=== PATIENT | female | born 2000 | race Caucasian/White ===

== ENCOUNTER 2023-12-10 12:00 | Emergency (ER) | payer BC, OTHER ==
[2023-12-10 13:12] LABS: HCT 41.7 % (34.0-46.0); HGB 13.7 gm/dL (11.4-16.0); MCH 29.2 pg (25.0-35.0); MCHC 32.9 g/dL (31.0-37.0); MCV 88.9 fL (80.0-100.0); Mean Platelet Volume 7.7; Platelet Count 365 k/uL (150-450)
[2023-12-10 13:22] LABS: ALT 25 U/L (4-34); AST 25 U/L (14-36); African American GFR (CKD) >90 (>60 ml/min/1.73 sqM); Albumin 4.1 g/dL (3.5-5.0); Alkaline Phosphatase 76 U/L (38-126); Anion Gap 8 mmol/L; Blood Urea Nitrogen 8 mg/dL (7-17); Calcium 8.9 mg/dL (8.4-10.2); Carbon Dioxide 22 mmol/L (22-30); Chloride 108 mmol/L (98-107); Glucose 91 mg/dL (74-99); Non-African American GFR(CKD) >90 (>60 ml/min/1.73 sqM); Potassium 4.4 mmol/L (3.5-5.1); Sodium 138 mmol/L (137-145); Total Bilirubin 0.4 mg/dL (0.2-1.3); Total Protein 6.8 g/dL (6.3-8.2)
[2023-12-10 13:25] LABS: HCG,Qualitative Serum Not Detected
[2023-12-10 14:16] LABS: Eosinophils # (M) 0.14 k/uL (0-0.7); Lymphocytes # (M) 3.08 k/uL (1.0-4.8); Monocytes # (M) 0.56 k/uL (0-1.0); Neutrophils # (M) 10.22 k/uL (1.3-7.7); Neutrophils % (M) 73 %; Nucleated Red Blood Cells 0 /100 WBC (0-0); Total Cells Counted 100
[2023-12-10] MEDS: MORPHINE SULFATE 4 MG/ML SYRINGE IVP PRN (14:45)
--- NOTE | 2023-12-10 15:15 | CT ---
EXAMINATION TYPE: CT lower extremity LT w con DATE OF EXAM: 12/10/2023 COMPARISON: None HISTORY: right knee dislocation CT DLP: 204.7 mGycm Automated exposure control for dose reduction was used. Contrast: None Technique: Axial images 1 mm thick sections. Reconstructed images in the coronal and sagittal plane. 3-D reconstructed images are reviewed on the computer. FINDINGS: There is a subtle fracture of the anterior medial femoral condyle. Example image series 201 image 44 this is better appreciated on the coronal reconstructed images, series 202 image 26. This extends fro m the distal metaphysis towards the medial portion of the femoral condyle. Fracture appears nondispla nicanor. There is a fracture fragment posterior lateral joint space. This may be from fibular head. Additional fracture of the proximal fibula is present. Soft tissue injury is within the lateral knee. IMPRESSION: 1. THERE IS A COMMINUTED FRACTURE OF THE FIBULAR HEAD WITH DIASTASES AND RETRACTION OF THE SUPERIOR F RACTURE FRAGMENT. 2. SUBTLE NONDISPLACED FRACTURE OF THE ANTERIOR MEDIAL FEMORAL CONDYLE IS PRESENT.
--- NOTE | 2023-12-10 16:05 | ED ---
Lower Extremity Injury HPI - General Chief Complaint: Extremity Injury, Lower Stated Complaint: right knee injury Time Seen by Provider: 12/10/23 12:10 Source: patient, EMS Mode of arrival: EMS Limitations: no limitations - History of Present Illness Initial Comments: 23-year-old female presents emergency department with possible knee dislocation. States that she was playing tennis when she planted her leg and went to jump off. She states she did something snap in her leg. When she was in the air she felt like she had complete dislocation of her knee and then patient fell to the ground. Patient admits that she has had previous patellar dislocation and this felt different. States that her leg relocated almost immediately. EMS that brought her in and gave her fentanyl for pain control. States her pain is at a 4. Denies any numbness or tingling in her foot. Denies any other injuries. Patient did not strike her head. No other alleviating, precipitating or modifying factors - Related Data Home Medications Medication Instructions Recorded Confirmed Control Unknown 1 tab PO HS 04/11/17 Previous Rx's Medication Instructions Recorded Ondansetron Odt [Zofran Odt] 4 mg PO Q8HR PRN #10 tab 04/11/17 HYDROcodone/APAP 5-325MG [[place] 1 tab PO Q4HR PRN #18 tab 12/10/23 5-325] Ibuprofen [Motrin] 600 mg PO Q8HR PRN #30 tab 12/10/23 Allergies Allergy/AdvReac Type Severity Reaction Status Date / Time No Known Allergies Allergy Verified 12/10/23 12:20 Review of Systems ROS Statement: Those systems with pertinent positive or pertinent negative responses have been documented in the HPI. ROS Other: All systems not noted in ROS Statement are negative. Past Medical History Past Medical History: No Reported History Additional Past Medical History / Comment(s): sports induced asthma as kid History of Any Multi-Drug Resistant Organisms: None Reported Additional Past Surgical History / Comment(s): ovarian cyst surgery Past Psychological History: No Psychological Hx Reported Smoking Status: Vaper Past Alcohol Use History: Occasional Past Drug Use History: None Reported General Exam Limitations: no limitations General appearance: alert, in no apparent distress Head exam: Present: atraumatic, normocephalic, normal inspection Eye exam: Present: normal appearance, PERRL, EOMI. Absent: scleral icterus, conjunctival injection, periorbital swelling ENT exam: Present: normal exam, mucous membranes moist Neck exam: Present: normal inspection. Absent: tenderness, meningismus, lymphadenopathy Respiratory exam: Present: normal lung sounds bilaterally. Absent: respiratory distress, wheezes, rales, rhonchi, stridor Cardiovascular Exam: Present: regular rate, normal rhythm, normal heart sounds. Absent: systolic murmur, diastolic murmur, rubs, gallop, clicks GI/Abdominal exam: Present: soft, normal bowel sounds. Absent: distended, tenderness, guarding, rebound, rigid Extremities exam: Present: tenderness (With range of motion of the right knee. Appears to have laxity. Joint effusion present 2+ DP and PT pulses. Compartments are soft), joint swelling. Absent: pedal edema, calf tenderness Back exam: Present: normal inspection Neurological exam: Present: alert, oriented X3, CN II-XII intact Psychiatric exam: Present: normal affect, normal mood Skin exam: Present: warm, dry, intact, normal color. Absent: rash Course Vital Signs 12/10/23 12/10/23 12/10/23 12:06 14:43 17:01 Temperature 98.3 F 98.1 F Pulse Rate 78 98 107 H Respiratory 16 22 20 Rate Blood Pressure 136/89 163/84 141/94 O2 Sat by Pulse 99 98 98 Oximetry Medical Decision Making - Medical Decision Making Was pt. sent in by a medical professional or institution ([facility], [facility], urgent care, hospital, or fpc...) When possible be specific @ -No Did you speak to anyone other than the patient for history (EMS, parent, family, police, friend...)? What history was obtained from this source @ -Spoke with EMS for the history Did you review nursing and triage notes (agree or disagree)? Why? @ -I reviewed and agree with nursing and triage notes Were old charts reviewed (outside hosp., previous admission, EMS record, old EKG, old radiological studies, urgent care reports/EKG's, fpc records)? Report findings @ -No old charts were reviewed Differential Diagnosis (chest pain, altered mental status, abdominal pain women, abdominal pain men, vaginal bleeding, weakness, fever, dyspnea, syncope, headache, dizziness, GI bleed, back pain, seizure, CVA, palpatations, mental health, musculoskeletal)? @ -Differential Musculoskeletal Muscular strain, contusion, ligament sprain, fracture, arthritis, septic arthritis, bursitis, cellulitis, muscle spasm, nerve compression, DVT, arterial occlusion, herpes zoster, electrolyte abnormality, tumor.... This is not meant to be in all inclusive list EKG interpreted by me (3pts min.). @ -Not done X-rays interpreted by me (1pt min.). @ -None done CT interpreted by me (1pt min.). @ -Yes and demonstrates proximal fibular fracture and medial femoral condyle fracture U/S interpreted by me (1pt. min.). @ -None done What testing was considered but not performed or refused? (CT, X-rays, U/S, labs)? Why? @ -None What meds were considered but not given or refused? Why? @ -None Did you discuss the management of the patient with other professionals (professionals i.e. , PA, [facility], lab, RT, psych nurse, social services technician, chicken stuffer, teacher, professional security officer, rehabilitation caseworker)? Give summary @ -Spoke with Dr. Jackson who states the patient be discharged home in a knee immobilizer Was smoking cessation discussed for >3mins.? @ -No Was critical care preformed (if so, how long)? @ -No Were there social determinants of health that impacted care today? How? (Homelessness, low income, unemployed, alcoholism, drug addiction, transportation, low edu. Level, literacy, decrease access to med. care, usp, rehab)? @ -No Was there de-escalation of care discussed even if they declined (Discuss DNR or withdrawal of care, Hospice)? DNR status @ -No What co-morbidities impacted this encounter? (DM, HTN, Smoking, COPD, CAD, Cancer, CVA, ARF, Chemo, Hep., AIDS, mental health diagnosis, sleep apnea, morbid obesity)? @ -None Was patient admitted / discharged? Hospital course, mention meds given and route, prescriptions, significant lab abnormalities, going to OR and other pertinent info. @ -Upon arrival patient seen and evaluated in room 28. Thorough history and physical exam was performed. Patient has no knee dislocation at this time. As there is concern that the patient did dislocate the whole knee I did perform a CT of her lower extremity. I ordered pain medications which the patient stated she did not need at this time. CT was performed. Called and spoke with Dr. Trejo in regards to the results. He states that the patient may be safely discharged home in a knee immobilizer with outpatient MRI follow-up. Patient will take Motrin alternating with [place] for pain control. Rest, ice and elevate the extremity. Follow-up should she have any new or worsening symptoms to include signs of compartment syndrome which the patient is instructed on. She will follow-up with orthopedic office. Patient agreeable this plan was discharged in stable condition with a set of crutches Undiagnosed new problem with uncertain prognosis? @ -No Drug Therapy requiring intensive monitoring for toxicity (Heparin, Nitro, Insulin, Cardizem)? @ -No Were any procedures done? @ -No Diagnosis/symptom? @ -Acute fall, acute proximal fibular fracture, acute medial condyle fracture, suspected knee dislocation Acute, or Chronic, or Acute on Chronic? @ -Acute Uncomplicated (without systemic symptoms) or Complicated (systemic symptoms)? @ -Complicated Side effects of treatment? @ -No Exacerbation, Progression, or Severe Exacerbation? @ -No Poses a threat to life or bodily function? How? (Chest pain, [place], [place], pneumonia, PE, COPD, DKA, ARF, appy, cholecystitis, CVA, Diverticulitis, Homicidal, Suicid al, threat to staff... and all critical care pts) @ -No - Lab Data Result diagrams: 12/10/23 12:56 12/10/23 12:56 Lab Results 12/10/23 12/10/23 Range/Units 12:56 12:56 WBC 14.0 H (3.8-10.6) k/uL RBC 4.70 (3.80-5.40) m/uL Hgb 13.7 (11.4-16.0) gm/dL Hct 41.7 (34.0-46.0) % MCV 88.9 (80.0-100.0) fL MCH 29.2 (25.0-35.0) pg MCHC 32.9 (31.0-37.0) g/dL RDW 13.0 (11.5-15.5) % Plt Count 365 (150-450) k/uL MPV 7.7 Neutrophils % (Manual) 73 % Lymphocytes % (Manual) 22 % Monocytes % (Manual) 4 % Eosinophils % (Manual) 1 % Neutrophils # (Manual) 10.22 H (1.3-7.7) k/uL Lymphocytes # (Manual) 3.08 (1.0-4.8) k/uL Monocytes # (Manual) 0.56 (0-1.0) k/uL Eosinophils # (Manual) 0.14 (0-0.7) k/uL Nucleated RBCs 0 (0-0) /100 WBC Manual Slide Review Performed Sodium 138 (137-145) mmol/L Potassium 4.4 (3.5-5.1) mmol/L Chloride 108 H (98-107) mmol/L Carbon Dioxide 22 (22-30) mmol/L Anion Gap 8 mmol/L BUN 8 (7-17) mg/dL Creatinine 0.84 (0.52-1.04) mg/dL Est GFR (CKD-EPI)AfAm >90 (>60 ml/min/1.73 sqM) Est GFR (CKD-EPI)NonAf >90 (>60 ml/min/1.73 sqM) Glucose 91 (74-99) mg/dL Calcium 8.9 (8.4-10.2) mg/dL Total Bilirubin 0.4 (0.2-1.3) mg/dL AST 25 (14-36) U/L ALT 25 (4-34) U/L Alkaline Phosphatase 76 (38-126) U/L Total Protein 6.8 (6.3-8.2) g/dL Albumin 4.1 (3.5-5.0) g/dL HCG, Qual Not Detected Disposition Clinical Impression: Fracture Dislocation Of Knee Joint Disposition: HOME SELF-CARE Condition: Stable Instructions (If sedation given, give patient instructions): Leg Fracture (ED) Additional Instructions: Wear the knee immobilizer at all times except for showering. Do not weight bear. No bending. Rest, ice and elevate the extremity. Alternate taking the ibprofen and norco every 4 hours. Follow up with the orthopedic surgeon and return for any new or worsening symptoms. Prescriptions: Ibuprofen [Motrin] 600 mg PO Q8HR PRN #30 tab PRN Reason: Pain HYDROcodone/APAP 5-325MG [[place] 5-325] 1 tab PO Q4HR PRN #18 tab PRN Reason: Pain Is patient prescribed a controlled substance at d/c from ED?: Yes When asked, does pt state using other controlled substances?: No If prescribed controlled substance>3 days was MAPS reviewed?: Prescribed <3 Days Referrals: Javon Israel DO [Doctor of Osteopathic Medicine] - 1-2 days Lamont Millan MD [STAFF PHYSICIAN] - 1-2 days Time of Disposition: 16:01
[2023-12-10 17:25] VITALS: BP 141/94; PULSE 107; RESP 20; TEMP 98.1
== END 2023-12-10 17:08 | disposition home or self-care (01) ==
LOC: EC 12:00
DX: S82.491A Other fracture of shaft of right fibula, initial encounter for closed fracture (principal); S83.104A Unspecified dislocation of right knee, initial encounter; F17.290 Nicotine dependence, other tobacco product, uncomplicated; W19.XXXA Unspecified fall, initial encounter; Y93.73 Activity, racquet and hand sports
CPT/HCPCS: 36415; 80053; 85025; 84703; 73701; 99284; 96374; J2270; Q9967